=== PATIENT | female | born 1990 | race American Indian/Alaskan Native ===

== ENCOUNTER 2016-07-22 10:48 | Emergency (ER) | payer MEDICAID ==
[2016-07-22 11:44] LABS: Basophils % (Auto) 0.5 % (0.0-1.8); Eosinophils % (Auto) 1.7 % (0.0-4.3); Hematocrit 38.6 % (30.3-42.9); Hemoglobin 12.3 gm/dl (10.1-14.3); Mean Corpuscular HGB Conc 32 % (30-34); Mean Corpuscular Volume 80 fl (79-97); Platelet Count 198 K/mm3 (140-440); Red Blood Count 4.85 M/mm3 (3.65-5.03); Red Cell Distribution Width 15.5 % (13.2-15.2); White Blood Count 4.9 K/mm3 (4.5-11.0)
[2016-07-22 11:46] LABS: Mean Corpuscular Hemoglobin 25 pg (28-32)
[2016-07-22 12:02] LABS: Bilirubin,Urine NEG (Negative); Blood,Urine MOD (Negative); Ketones,Urine NEG (Negative); Leukocyte Esterase,Urine TR (Negative); Mucus,Urine 3+ /HPF; Nitrite,Urine NEG (Negative); Protein,Urine <15 mg/dL mg/dL (Negative); Urobilinogen,Urine < 2.0 mg/dL (<2.0); WBC,Urine < 1.0 /HPF (0.0-6.0)
--- NOTE | 2016-07-22 15:30 | Ultrasound Report ---
FINAL REPORT PROCEDURE: US OB TRANSVAGINAL TECHNIQUE: Real-time transvaginal sonography of the uterus, placenta, amniotic fluid, adnexa, and fetus was performed with image documentation. Measurements were obtained to determine age/size. M-mode Doppler was used to document heartbeat. CPT 89468 HISTORY: with bleeding COMPARISON: No prior studies are available for comparison. FINDINGS: The report for this exam was generated using images from both the transabdominal and transvaginal pelvic ultrasound both of which were performed today. Twin intrauterine is visualized. There is a thick septation the 2 fetuses suggesting dichorionic diamniotic twins. Twin gestational sac visualize located in the endometrial canal. There is a moderate size subchorionic hemorrhage visualized approximately the same size as 1 of the gestational sacs. The subchorionic hemorrhage is located adjacent to both gestational sacs. The shape of the gestational sacs otherwise appears normal. The subchorionic hemorrhage measures 1.3 by 1.2 x 1.1 centimeter. Twin B is labeled closer to the fundus of the uterus. Twin a is located closer to the cervix. They are directly adjacent to each other. pole and yolk sac of Twin A are both visualized. heart rate of twin a is 105 beats per minute. The crown-rump length measurement is 4.1 millimeters corresponding to an age of 6 week 1 day. No gross abnormality is seen. Fetus currently too small to assess anatomy. Twin B has a crown-rump length measurement of 4.9 millimeters corresponding to an age is 6 weeks 2 days. Yolk sac is visualized. Fetus currently too small to assess anatomy. No gross abnormality is seen. heart rate of twin B 111 beats per minute. Uterus is otherwise unremarkable. Right ovary is visualized and unremarkable measuring 3.6 x 1.6 x 2.3 centimeter. There are 2 thick-walled cyst visualized in the left ovary suggesting 1 of these representing corpus luteum cyst of . One measures 2.0 centimeters greatest diameter the other 1.9 centimeters greatest diameter. Left ovary overall measures 4.3 x 2.4 x 2.0 centimeters IMPRESSION: Twin living intrauterine pregnancies visualized. Thick septation separates the gestational sacs suggesting dichorionic diamniotic twins. There is a subchorionic hemorrhage present as described adjacent to both gestational sacs. The shape of the gestational sacs appears normal. heart rate of both fetus as described above. Thick-walled cyst visualized in the left ovary as described suggesting 1 of these represents corpus luteum cyst of . Follow-up exam of the ovaries suggested.
--- NOTE | 2016-07-22 15:42 | Ultrasound Report ---
FINAL REPORT PROCEDURE: US OB \T\lt; = 14 WEEKS FETUS TECHNIQUE: Real-time transabdominal sonography of the uterus, placenta, amniotic fluid, adnexa, and fetus was performed with image documentation. Measurements were obtained to determine age/size. M-mode Doppler was used to document heartbeat. CPT 57091 HISTORY: with bleeding COMPARISON: No prior studies are available for comparison. FINDINGS: The report for this exam was generated using images from both the transabdominal and transvaginal pelvic ultrasound both of which were performed today. Twin intrauterine is visualized. There is a thick septation the 2 fetuses suggesting dichorionic diamniotic twins. Twin gestational sac visualize located in the endometrial canal. There is a moderate size subchorionic hemorrhage visualized approximately the same size as 1 of the gestational sacs. The subchorionic hemorrhage is located adjacent to both gestational sacs. The shape of the gestational sacs otherwise appears normal. The subchorionic hemorrhage measures 1.3 by 1.2 x 1.1 centimeter. Twin B is labeled closer to the fundus of the uterus. Twin a is located closer to the cervix. They are directly adjacent to each other. pole and yolk sac of Twin A are both visualized. heart rate of twin A is 105 beats per minute. The crown-rump length measurement is 4.1 millimeters corresponding to an age of 6 week 1 day. No gross abnormality is seen. Fetus currently too small to assess anatomy. Twin B has a crown-rump length measurement of 4.9 millimeters corresponding to an age of 6 weeks 2 days. Yolk sac is visualized. Fetus currently too small to assess anatomy. No gross abnormality is seen. heart rate of twin B 111 beats per minute. Uterus is otherwise unremarkable. Right ovary is visualized and unremarkable measuring 3.6 x 1.6 x 2.3 centimeter. There are 2 thick-walled cyst visualized in the left ovary suggesting 1 of these representing corpus luteum cyst of . One measures 2.0 centimeters greatest diameter the other 1.9 centimeters greatest diameter. Left ovary overall measures 4.3 x 2.4 x 2.0 centimeters IMPRESSION: Twin living intrauterine pregnancies visualized. Thick septation separates the gestational sacs suggesting dichorionic diamniotic twins. There is a subchorionic hemorrhage present as described adjacent to both gestational sacs. The shape of the gestational sacs appears normal. heart rate of both fetus as described above. Estimated age of the fetus, twin A 6 week 1 day day placing EDC at 03/16/2017 06/2016 0.5 weeks. Fetus currently too small to assess anatomy. No gross abnormality is seen. Follow-up exam suggested at 18-20 weeks to evaluate anatomy. Estimated age of twin fetus B 6 week 2 days days placing the EDC at 03/15/2017 0.5 weeks. Fetus currently too small to assess anatomy. No gross abnormality is seen. Follow-up exam suggested at 18-20 weeks to evaluate anatomy. Thick-walled cyst visualized in the left ovary as described suggesting 1 of these represents corpus luteum cyst of . Follow-up exam of the ovaries suggested.
--- NOTE | 2016-07-22 15:44 | Ultrasound Report ---
FINAL REPORT PROCEDURE: US OB \T\lt; = 14 WK FETUS ADD GEST TECHNIQUE: Real-time sonography of an additional gestation with evaluation of the uterus, placenta, amniotic fluid, adnexa, and fetus was performed with image documentation. Measurements were obtained to determine age/size. M-mode Doppler was used to document heartbeat. CPT 06881 . HISTORY: twin twin . Vaginal bleeding. COMPARISON: Transabdominal and transvaginal OB ultrasound both performed today. FINDINGS: The report for this exam was generated using images from both the transabdominal and transvaginal pelvic ultrasound both of which were performed today. Twin intrauterine is visualized. There is a thick septation the 2 fetuses suggesting dichorionic diamniotic twins. Twin gestational sac visualize located in the endometrial canal. There is a moderate size subchorionic hemorrhage visualized approximately the same size as 1 of the gestational sacs. The subchorionic hemorrhage is located adjacent to both gestational sacs. The shape of the gestational sacs otherwise appears normal. The subchorionic hemorrhage measures 1.3 by 1.2 x 1.1 centimeter. Twin B is labeled closer to the fundus of the uterus. Twin a is located closer to the cervix. They are directly adjacent to each other. pole and yolk sac of Twin A are both visualized. heart rate of twin A is 105 beats per minute. The crown-rump length measurement is 4.1 millimeters corresponding to an age of 6 week 1 day. No gross abnormality is seen. Fetus currently too small to assess anatomy. Twin B has a crown-rump length measurement of 4.9 millimeters corresponding to an age of 6 weeks 2 days. Yolk sac is visualized. Fetus currently too small to assess anatomy. No gross abnormality is seen. heart rate of twin B 111 beats per minute. Uterus is otherwise unremarkable. Right ovary is visualized and unremarkable measuring 3.6 x 1.6 x 2.3 centimeter. There are 2 thick-walled cyst visualized in the left ovary suggesting 1 of these representing corpus luteum cyst of . One measures 2.0 centimeters greatest diameter the other 1.9 centimeters greatest diameter. Left ovary overall measures 4.3 x 2.4 x 2.0 centimeters IMPRESSION: Twin living intrauterine pregnancies visualized. Thick septation separates the gestational sacs suggesting dichorionic diamniotic twins. There is a subchorionic hemorrhage present as described adjacent to both gestational sacs. The shape of the gestational sacs appears normal. heart rate of both fetus as described above. Estimated age of the fetus, twin A 6 week 1 day day placing EDC at 03/16/2017 06/2016 0.5 weeks. Fetus currently too small to assess anatomy. No gross abnormality is seen. Follow-up exam suggested at 18-20 weeks to evaluate anatomy. Estimated age of twin fetus B 6 week 2 days days placing the EDC at 03/15/2017 0.5 weeks. Fetus currently too small to assess anatomy. No gross abnormality is seen. Follow-up exam suggested at 18-20 weeks to evaluate anatomy. Thick-walled cyst visualized in the left ovary as described suggesting 1 of these represents corpus luteum cyst of . Follow-up exam of the ovaries suggested.
--- NOTE | 2016-07-22 17:27 | Emergency Department Report ---
HPI - General Chief Complaint: Vaginal Bleeding Time Seen by Provider: 07/22/16 17:13 - HPI HPI: Room 7 The patient is a 26-year-old female presenting with a chief complaint of vaginal bleeding. The patient states she took a home test last week which was positive. The patient states for the past week she has had intermittent lower pelvic cramping. Patient states last night she developed heavy vaginal bleeding that felt similar to her normal cycle. The patient states the bleeding stopped last night she currently only has intermittent spotting. When asked how she is feeling down the patient replies "kind of fine. " The patient states she has not obtained an [employer] for this yet. Location: Pelvis Duration: [see above] Quality: Pain Severity: Moderate Modifying factors: [see above] Context: [see above] Mode of transportation: Unknown ED Past Medical Hx - Past Medical History Previous Medical History?: No - Surgical History Past Surgical History?: No - Family History Family history: no significant - Social History Smoking Status: Never Smoker Substance Use Type: Alcohol (occasional) - Medications Home Medications: Home Medications Medication Instructions Recorded Confirmed Last Taken Type No Known Home Medications [No 07/22/16 07/22/16 Unknown History Reported Home Medications] ED Review of Systems ROS: Stated complaint: PREG/AND MAY BE HAVING A MISCARRAIGE Other details as noted in HPI Comment: All other systems reviewed and negative Constitutional: denies: chills, fever Eyes: denies: eye pain, eye discharge, vision change ENT: denies: ear pain, throat pain Respiratory: denies: cough, shortness of breath, wheezing Cardiovascular: denies: chest pain, palpitations Endocrine: no symptoms reported Gastrointestinal: abdominal pain Genitourinary: abnormal menses Musculoskeletal: denies: back pain, joint swelling, arthralgia Skin: denies: rash, lesions Neurological: denies: headache, weakness, paresthesias Psychiatric: denies: anxiety, depression Hematological/Lymphatic: denies: easy bleeding, easy bruising Physical Exam - Physical Exam Vital Signs: Vital Signs 07/22/16 11:13 Temperature 98.3 F Pulse Rate 71 Respiratory 17 Rate Blood Pressure 114/72 O2 Sat by Pulse 100 Oximetry Physical Exam: GENERAL: The patient is well-developed well-nourished female lying on stretcher not appearing to be in acute distress. [] HEENT: Normocephalic. Atraumatic. Extraocular motions are intact. Patient has moist mucous membranes. NECK: Supple. Trachea midline CHEST/LUNGS: Clear to auscultation. There is no respiratory distress noted. HEART/CARDIOVASCULAR: Regular. There is no tachycardia. There is no gallop rub or murmur. ABDOMEN: Abdomen is soft, nontender. Patient has normal bowel sounds. There is no abdominal distention. SKIN: There is no rash. There is no edema. There is no diaphoresis. NEURO: The patient is awake, alert, and oriented. The patient is cooperative. The patient has normal speech MUSCULOSKELETAL: There is no evidence of acute injury. ED Course Vital Signs 07/22/16 11:13 Temperature 98.3 F Pulse Rate 71 Respiratory 17 Rate Blood Pressure 114/72 O2 Sat by Pulse 100 Oximetry ED Medical Decision Making - Lab Data Result diagrams: 07/22/16 11:27 Laboratory Tests 07/22/16 07/22/16 07/22/16 11:27 11:27 11:35 WBC 4.9 RBC 4.85 Hgb 12.3 Hct 38.6 MCV 80 MCH 25 L MCHC 32 RDW 15.5 H Plt Count 198 Lymph % (Auto) 37.4 H [place] % (Auto) 12.4 H Eos % (Auto) 1.7 Baso % (Auto) 0.5 Lymph # 1.8 [place] # 0.6 Eos # 0.1 Baso # 0.0 Seg Neutrophils % 48.0 Seg Neutrophils # 2.4 HCG, Quant 29478 H Urine Color Urine Turbidity Urine pH Ur Specific [place] Urine Protein Urine Glucose (UA) Urine Ketones Urine Blood Urine Nitrite Urine Bilirubin Urine Urobilinogen Ur Leukocyte Esterase Urine WBC (Auto) Urine RBC (Auto) U Epithel Cells (Auto) Urine Mucus Blood Type O POSITIVE Antibody Screen Negative 07/22/16 11:45 WBC RBC Hgb Hct MCV MCH MCHC RDW Plt Count Lymph % (Auto) [place] % (Auto) Eos % (Auto) Baso % (Auto) Lymph # [place] # Eos # Baso # Seg Neutrophils % Seg Neutrophils # HCG, Quant Urine Color Yellow Urine Turbidity Clear Urine pH 6.0 Ur Specific [place] 1.021 Urine Protein <15 mg/dl Urine Glucose (UA) Neg Urine Ketones Neg Urine Blood Mod Urine Nitrite Neg Urine Bilirubin Neg Urine Urobilinogen < 2.0 Ur Leukocyte Esterase Tr Urine WBC (Auto) < 1.0 Urine RBC (Auto) 2.0 U Epithel Cells (Auto) 4.0 Urine Mucus 3+ Blood Type Antibody Screen - Radiology Data Radiology results: report reviewed (pelvic ultrasound), image reviewed (pelvic ultrasound) Pelvic ultrasound (read by radiologist)- twin living urine pregnancies visualized. Thick septation separates the gestational sac suggesting dichorionic diamniotic twins. There is a subchorionic hemorrhage present adjacent to both gestational sacs. The shape of the gestational sacs appears normal. heart rate of both fetus 105 bpm, 111 bpm. Estimated age of fetus twin A 6 weeks 1 day - Differential Diagnosis threatened , spontaneous , missed Critical care attestation.: If time is entered above; I have spent that time in minutes in the direct care of this critically ill patient, excluding procedure time. ED Disposition Clinical Impression: Threatened , Twin gestation in first trimester, Subchorionic hemorrhage in first trimester Disposition: DISCHARGED TO HOME OR SELFCARE Is pt being admited?: No Does the pt Need Aspirin: No Condition: Stable Instructions: Threatened Miscarriage (ED) Additional Instructions: Return to the emergency department immediately should you develop worsening symptoms, fever, inability to tolerate food or liquid or any other concerns. Referrals: PRIMARY CARE, [Primary Care Provider] - 3-5 Days SHARITA VENTURA MD [Staff Physician] - [facility] (Dr. Ventura is an [employer]. Please follow up with her to be established as a patient for further management) Time of Disposition: 17:29
[2016-07-22 18:35] VITALS: BP 124/71
== END 2016-07-22 17:50 | disposition home or self-care (01) ==
LOC: ED 10:48
DX: O20.0 Threatened abortion (principal); Z3A.01 Less than 8 weeks gestation of pregnancy
CPT/HCPCS: 36415; 76801; 76802; 76817; 81001; 84702; 85025; 86850; 86900; 86901